=== PATIENT | female | born 1995 | race Caucasian/White ===

== ENCOUNTER 2017-02-03 10:11 | Inpatient (IN) | payer MEDICAID ==
[~2017-02-03] VITALS: Ht 165.1 cm; Wt 89.5 kg
[2017-02-03] MEDS ORDERED: BUTORPHANOL 2 MG INJ IV PRN (11:30)
[2017-02-03] MEDS ORDERED: IBUPROFEN 600 MG TAB PO PRN (11:30)
[2017-02-03] MEDS ORDERED: OXYTOCIN 30 UNITS/LR 500 ML IV SCH ×3 (11:30)
[2017-02-03] MEDS ORDERED: MISOPROSTOL 200 MCG TAB PR PRN (11:30)
[2017-02-03] MEDS ORDERED: METHYLERGONOVINE 0.2 MG INJ IM PRN (11:30)
[2017-02-03] MEDS ORDERED: CARBOPROST 250 MCG INJ IM PRN (11:30)
[2017-02-03] MEDS ORDERED: AMPICILLIN 2 GM/NS (PMX) 100 ML IV ONE (11:30)
[2017-02-03] MEDS ORDERED: OXYTOCIN 30 UNITS/LR 500 ML IV PRN (11:30)
[2017-02-03] MEDS ORDERED: LIDOCAINE 1% (MPF) 30 ML INJ INJ PRN (11:30)
--- NOTE | 2017-02-03 12:12 | RADRPT ---
PROCEDURE: US OB. CLINICAL INDICATION: Labor TECHNIQUE: Multiple sonographic images of the pelvis were obtained. Transabdominal imaging only w as performed. The images were reviewed on a PACS workstation. COMPARISON: No prior studies are available for comparison. FINDINGS: There is a single live intrauterine gestation. Cardiac activity is present with 159 beats per minut e. position is cephalic. Measurements were made in order to determine age. The results are as follows: BPD = 9.63 cm HC = 32.62 cm AC = 35.91 cm FL = 7.48 cm. Estimated gestational age of approximately 38 weeks 4 days. The estimated date of delivery is 02/13/2017. The EFW = 3686 g, 56 %ile. The placenta is fundal. There is no evidence for an abruption or placenta previa. There are no adnexal masses. IMPRESSION: 1. Single live intrauterine gestation of approximately 38 weeks 4 days, by ultrasound criteria. 2. The estimated date of delivery is 02/13/2017. 3. The estimated weight is 3686 g, 56 %ile. RPTAT: HH .Jodi Villalba MD, Date Time Electronically viewed and signed by .Jodi Villalba MD, on 02/03/2017 12:11 .G/
--- NOTE | 2017-02-03 12:13 | RADRPT ---
PROCEDURE: OB ultrasound for biophysical profile CLINICAL INDICATION: Labor TECHNIQUE: Multiple sonographic images of the pelvis were obtained. Transabdominal views of the g ravid uterus are available for review. The images were reviewed on a PACS workstation. COMPARISON: None FINDINGS: breathing movement = 2/2 tone = 2/2 motion = 2/2 LISBET = 2/2 LISBET = 10.8 cm Single live intrauterine with cardiac activity of 156 bpm. position is cephal ic. The placenta is fundal. IMPRESSION: 1. Single live intrauterine gestation. 2. Biophysical profile = 8/8. 3. LISBET = 10.8 cm. RPTAT: HH .Jodi Villalba MD, MD Date Time Electronically viewed and signed by .Jodi Villalba MD, on 02/03/2017 12:13 .G/
[2017-02-03 12:19] LABS: BASOPHILS % 0.2 % (0.0-2.0); EOSINOPHILS # 0.1 10^3/ul (0.0-0.5); EOSINOPHILS % 0.7 % (0.0-7.0); HEMATOCRIT 33.2 % (37.0-47.0); HEMOGLOBIN 10.7 g/dl (12.0-16.0); LYMPHOCYTES # 1.3 10^3/ul (0.8-2.9); LYMPHOCYTES % 13.5 % (18.0-55.0); MEAN CORPUSCULAR HEMOGLOBIN 26.2 pg (29.0-33.0); MEAN CORPUSCULAR HGB CONC 32.2 g/dl (32.0-37.0); MEAN CORPUSCULAR VOLUME 81.4 fl (72.0-104.0); MEAN PLATELET VOLUME 11.3 fl (7.4-10.4); MONOCYTE # 0.6 10^3/ul (0.3-0.9); MONOCYTES % 6.8 % (0.0-13.0); NEUTROPHIL # 7.4 10^3/ul (1.6-7.5); NEUTROPHILS % 78.4 % (30.0-74.0); PLATELET COUNT 256 10^3/UL (140-415); RED BLOOD COUNT 4.08 10^6/ul (4.20-5.40); WHITE BLOOD COUNT 9.5 10^3/ul (4.8-10.8)
[2017-02-03 12:35] LABS: INR 0.9; PROTIME 12.1 Sec (12.2-14.2); PT RATIO 0.9
[2017-02-03] MEDS: LACTATED RINGER'S 1,000 ML IV SCH ×3 (12:36→21:15)
[2017-02-03] MEDS ORDERED: AMPICILLIN 1 GM/NS (PMX) 50 ML IV SCH (15:30)
[2017-02-03] MEDS ORDERED: LACTATED RINGER'S 1,000 ML IV PRN (16:00)
[2017-02-03 21:29] VITALS: Ht 165.1 cm; Wt 89.5 kg
[2017-02-04] MEDS ORDERED: FENTAnyl 2MCG/ML-ROPIV 0.2% 100 ML ONE (02:22)
[2017-02-04] MEDS ORDERED: NALOXONE (0.4 MG/ML) INJ IV PRN (02:30)
[2017-02-04] MEDS ORDERED: EPHEDrine SULFATE 50 MG/5 ML SYG IV PRN (02:30)
[2017-02-04] MEDS ORDERED: FENTAnyl 2MCG/ML-ROPIV 0.2% 100 ML BAG EPI SCH (02:30)
[2017-02-04] MEDS ORDERED: DIPHENHYDRAMINE 50 MG INJ IV PRN (02:30)
[2017-02-04] MEDS ORDERED: ONDANSETRON 4 MG INJ IV PRN ×2 (02:30→12:30)
[2017-02-04] MEDS: LACTATED RINGER'S 1,000 ML IV SCH ×2 (03:08→08:26)
[2017-02-04] MEDS ORDERED: MINERAL OIL LIGHT 10 ML VIAL TOP ONE (08:00)
[2017-02-04 11:05] VITALS: BP 108/54; PULSE 81; RESP 18
[2017-02-04 11:15] VITALS: BP 108/54; PULSE 87; RESP 18
[2017-02-04] MEDS ORDERED: LACTATED RINGER'S 1,000 ML IV* SCH ×2 (11:16→12:08)
[2017-02-04] MEDS ORDERED: CARBOPROST 250 MCG INJ IM PRN ×2 (11:30→12:30)
[2017-02-04] MEDS ORDERED: METHYLERGONOVINE 0.2 MG INJ IM PRN ×2 (11:30→12:30)
[2017-02-04] MEDS ORDERED: OXYTOCIN 30 UNITS/LR 500 ML IV PRN ×2 (11:30→12:30)
[2017-02-04] MEDS ORDERED: MISOPROSTOL 200 MCG TAB PR PRN ×2 (11:30→12:30)
[2017-02-04] MEDS ORDERED: ONDANSETRON 4 MG TAB PO PRN (12:30)
[2017-02-04] MEDS ORDERED: BENZOCAINE 20% 56 ML SPRAY TOP PRN (12:30)
[2017-02-04] MEDS ORDERED: OXYCODONE/ASPIRIN (4.88/325) TAB PO PRN (12:30)
[2017-02-04] MEDS ORDERED: SENNA/DOCUSATE NA (8.6MG/50MG) TAB PO PRN (12:30)
[2017-02-04] MEDS ORDERED: LANOLIN 7 GM TUBE TOP PRN (12:30)
[2017-02-04] MEDS ORDERED: ZOLPIDEM 5 MG TAB PO PRN (12:30)
[2017-02-04] MEDS ORDERED: WITCH HAZEL/GLYCERIN PAD PR PRN (12:30)
[2017-02-04 16:00] VITALS: BP 115/56; PULSE 106; RESP 18
[2017-02-04] MEDS: IBUPROFEN 600 MG TAB PO SCH ×2 (17:43→23:56)
[2017-02-04 19:30] VITALS: BP 124/65; PULSE 105; RESP 19
[2017-02-04] MEDS: SENNA/DOCUSATE NA (8.6MG/50MG) TAB PO SCH (20:46)
[2017-02-05 04:00] VITALS: BP 110/71; PULSE 83; RESP 19
[2017-02-05] MEDS: IBUPROFEN 600 MG TAB PO SCH ×3 (05:40→17:18)
[2017-02-05 07:47] LABS: BASOPHILS % 0.1 % (0.0-2.0); EOSINOPHILS # 0.1 10^3/ul (0.0-0.5); EOSINOPHILS % 0.9 % (0.0-7.0); HEMATOCRIT 25.9 % (37.0-47.0); HEMOGLOBIN 8.3 g/dl (12.0-16.0); LYMPHOCYTES # 1.8 10^3/ul (0.8-2.9); LYMPHOCYTES % 13.2 % (18.0-55.0); MEAN CORPUSCULAR HEMOGLOBIN 26.3 pg (29.0-33.0); MEAN CORPUSCULAR VOLUME 82.2 fl (72.0-104.0); MEAN PLATELET VOLUME 11.6 fl (7.4-10.4); MONOCYTES % 7.5 % (0.0-13.0); NEUTROPHIL # 10.6 10^3/ul (1.6-7.5); NEUTROPHILS % 77.7 % (30.0-74.0); PLATELET COUNT 204 10^3/UL (140-415); RED BLOOD COUNT 3.15 10^6/ul (4.20-5.40); RED CELL DISTRIBUTION WIDTH 14.5 % (11.5-14.5); WHITE BLOOD COUNT 13.6 10^3/ul (4.8-10.8)
[2017-02-05 08:26] VITALS: BP 112/69; PULSE 86; RESP 18
[2017-02-05] MEDS: SENNA/DOCUSATE NA (8.6MG/50MG) TAB PO SCH ×2 (08:26→21:41)
--- NOTE | 2017-02-05 14:44 | QN ---
Documentation Comment Progress Note PPD #1 + but the baby is only latching on one side ( the left) and isn't on the other. The sales operations specialist hasn't seen her yet. No pain. Pt is doing well otherwise. T= 97.7 BP 112/69 Fundus is firm. Lochia minimal. Ext T, no edema. WBC 13.6 Hgb 8.3 Plts 204K P: Continue care. Plan D/C tomorrow. junk removal specialist called to see the pt. ZHANNA RANDALL MD Feb 05, 2017 14:43
[2017-02-05 15:50] VITALS: BP 114/56; PULSE 72; RESP 18
[2017-02-05 19:50] VITALS: BP 114/65; PULSE 88; RESP 18
[2017-02-06] MEDS: IBUPROFEN 600 MG TAB PO SCH ×3 (00:01→12:06)
[2017-02-06 03:45] VITALS: BP 109/56; PULSE 78; RESP 18
[2017-02-06 08:00] VITALS: BP 130/71; PULSE 78; RESP 18
[2017-02-06] MEDS: SENNA/DOCUSATE NA (8.6MG/50MG) TAB PO SCH (08:49)
[2017-02-06] MEDS ORDERED: DIPHTH/TET/ACEL PERTUSS (ADULT) 0.5 ML VIAL IM* ONE (09:00)
--- NOTE | 2017-02-06 13:08 | HP ---
Date/Time of Note Date/Time of Note DATE: 02/06/17 TIME: 13:07 OB - History Hx of Present Free Text/Dictation @39+wks GA with GDMA1 : 1 Para: 0 Care: Good Care Obstetrical Complications: Gestational Diabetes Medical Complications: None Past Family/Social History * Past Medical, Surgical, Family and Obstetric Histories reviewed from chart. OB Admission Exam Vital Signs Vital Signs Vital Signs Date Time Temp Pulse Resp B/P Pulse Ox O2 Delivery O2 Flow Rate FiO2 02/06/17 08:00 98.1 78 18 130/71 Room Air Physical Exam Abdomen: WNL Extremities: Normal Cervical Dilatation: 2cm Effacement: 75% Station: -1 Membranes: Intact Accelerations: Accelerations Present Decelerations: No Decelerations Varibility: Moderate Contractions on Admission: 6-10 Minutes Apart Last 72 hourBlood Glucose Bedside Glucose - 72 Hours Test 02/04/17 01:48 Bedside Glucose 107mg/dL (70-220) Last 72 hours Lab Results CBC & BMP 02/05/17 07:20 OB Assessment/Plan Reason for admission: observation Induction Method: per Pitocin Protocol JOSE ANGEL STEIN M.D. Feb 06, 2017 13:08
--- NOTE | 2017-02-06 13:10 | LDN ---
Date/Time of Note Date/Time of Note DATE: 02/06/17 TIME: 13:09 Delivery Summary Weeks of Gestation 39+ Placenta Delivered: Spontaneously Meconium: none Perineal laceration: 2 Anesthesia type: Epidural Estimated blood loss: 200 Sponge & Needle done & correct: Yes All needle counts correct: Yes Any foreign bodies felt in the: No Problems: JOSE ANGEL STEIN M.D. Feb 06, 2017 13:10
--- NOTE | 2017-02-06 13:11 | QN ---
Documentation Comment PPD#2 is stable afebrile toleartes diet No Vb +BM +voids VS stable Gen NAD Abd soft NT ND Genitalai No blood at perinium --->discharge Home JOSE ANGEL STEIN M.D. Feb 06, 2017 13:11
--- NOTE | 2017-02-06 13:13 | DS ---
Date/Time of Note Date/Time of Note DATE: 02/06/17 TIME: 13:12 Discharge Summary Admission/Discharge Info Admit Date/Time Feb 03, 2017 at 12:47 Discharge Date/Time January Patient Condition: Good Procedures Vaginal delivery Hospital Course uneventful Primary Care Provider Care Physician JOSE ANGEL Gonzalez M.D. Feb 06, 2017 13:13
[2017-02-06 16:00] VITALS: BP 117/72; PULSE 72; RESP 16
== END 2017-02-06 17:30 | disposition home or self-care (01) | DRG 775 ==
LOC: OBT 10:11 → L-D 10:12 → OBT 12:46 → L-D 12:47 → PP1 02-04 11:12
PROVIDERS: ADMIT Obstetrics & Gynecology; ATTEND Obstetrics & Gynecology
PROC: 10E0XZZ Delivery of Products of Conception, External Approach (ICD-10-PCS; principal; 2017-02-04)
PROC: 3E033VJ Introduction of Other Hormone into Peripheral Vein, Percutaneous Approach (ICD-10-PCS; 2017-02-04)
DX: O99.214 Obesity complicating childbirth (principal); E66.9 Obesity, unspecified; Z68.32 Body mass index [BMI] 32.0-32.9, adult; Z3A.39 39 weeks gestation of pregnancy; Z37.0 Single live birth
CPT/HCPCS: 62319; 76815; 76818; 82962; 85025; 85610; 85730; 86592; 86900; 86901; 90715; 99464; G0463; J0595; J2590; J3010; J7120

== ENCOUNTER 2018-02-08 18:48 | Emergency (ER) | END 2018-02-08 23:51 | disposition home or self-care (01) ==

== ENCOUNTER 2018-04-27 18:35 | Emergency (ER) | END 2018-04-27 20:38 | disposition home or self-care (01) ==

== ENCOUNTER 2018-05-26 05:52 | Emergency (ER) | END 2018-05-26 09:42 | disposition home or self-care (01) ==

== ENCOUNTER 2018-10-13 18:40 | Observation (INO) | payer MEDICAID ==
[~2018-10-13] VITALS: Ht 162.6 cm; Wt 80.4 kg
[~2018-10-13 18:40] MED LIST: CEPH-443 PO; IBUP800T48 PO; NITR-58 PO; ONDA4TAB14 PO; ONDA4TAB8 PO
[2018-10-13] MEDS ORDERED: IOHEXOL 100 ML ONE (21:02)
[2018-10-13] MEDS ORDERED: SOD CHLORIDE 0.9% 100 ML ONE (21:02)
[2018-10-13] MEDS ORDERED: DOCUSATE SODIUM 100 MG CAP PO PRN (23:30)
[2018-10-13] MEDS ORDERED: SOD CHLORIDE 0.9% 500 ML IV ONE (23:30)
[2018-10-13] MEDS ORDERED: BISACODYL (EC) 5 MG TAB PO PRN (23:30)
[2018-10-13] MEDS ORDERED: ONDANSETRON 4 MG INJ IV PRN (23:30)
[2018-10-13] MEDS ORDERED: ACETAMINOPHEN 325 MG TAB PO PRN ×2 (23:30)
[2018-10-13] MEDS ORDERED: NACL 0.9% 3 ML SYG IV SCH (23:30)
[2018-10-14] VITALS (12 sets, daily range): BP systolic 93–127; BP diastolic 51–71; PULSE 60–87; RESP 17–18; Ht 162.6 cm; Wt 80.4 kg
--- NOTE | 2018-10-14 00:36 | ERD ---
ER Documentation Chief Complaint Chief Complaint abd pain/chest pain/sob x 30 min. 18 weeks . denies vb HPI 23 year old female 18 weeks presenting with after a syncopal episode at home. She was doing laundry when she suddenly felt pain in the left side of her upper chest then lost consciousness, collapsing to the ground. Per her , the patient's sister was with her and witnessed this episode. However sister is not here to provide history. Reportedly, patient was unconscious for 10 minutes, and not breathing for the first 2 minutes. She had an episode of vomiting after she woke up. 911 was called and she was examined and told she was ok. Currently she complains of a aching, 6/10 pain in her left chest with associated SOB. Not positional and not exacerbated by deep breathing. Pain is nonradiating. She also complains of epigastric pain that is dull, nonradiating. NO alleviating or exacerbating factors. No vaginal bleeding or pelvic cramping. No recent illnesses, fevers, or chills. No nausea or vomiting. ROS All systems reviewed and are negative except as per history of present illness. Medications Home Meds Active Scripts Ibuprofen* (Motrin*) 800 Mg Tab, 800 MG PO Q6H PRN for PAIN AND OR ELEVATED TEMP, #30 TAB Prov:ANEESH ROSADO MD 05/26/18 Ondansetron Hcl* (Zofran*) 4 Mg Tablet, 4 MG PO Q8H PRN for NAUSEA AND/OR VOMITING, #20 TAB Prov:ANEESH ROSADO MD 05/26/18 Ibuprofen* (Motrin*) 800 Mg Tab, 800 MG PO Q6H PRN for PAIN AND OR ELEVATED TEMP, #30 TAB Prov:TERRELL CHOWDARY 04/27/18 Cephalexin* (Keflex*) 500 Mg Capsule, 500 MG PO TID for 7 Days, CAP Prov:TERRELL CHOWDARY F 04/27/18 Ondansetron (Ondansetron Odt) 4 Mg Tab.rapdis, 4 MG PO Q6H PRN for NAUSEA AND/OR VOMITING, #10 TAB Prov:ADELSO FROST PA-C 02/08/18 Nitrofurantoin Monohyd Macrocr* (Macrobid*) 100 Mg Capsr, 100 MG PO BID for 5 Days, CAP Prov:ADELSO FROST PA-C 02/08/18 Allergies Allergies: Coded Allergies: No Known Allergy (Unverified , 02/08/18) PMhx/Soc Medical and Surgical Hx: pt denies Surgical Hx History of Surgery: No Anesthesia Reaction: No Hx Neurological Disorder: No Hx Respiratory Disorders: No Hx Cardiac Disorders: No Hx Psychiatric Problems: No Hx Miscellaneous Medical Probl: No Hx Alcohol Use: No Hx Substance Use: No Hx Tobacco Use: No Smoking Status: Never smoker FmHx Family History: No diabetes Physical Exam Vitals Vital Signs Date Temp Pulse Resp B/P (MAP) Pulse Ox O2 O2 Flow FiO2 Time Delivery Rate 10/13/18 66 24 118/64 100 Room Air 19:42 (82) 10/13/18 98.6 69 18 118/59 99 18:48 (78) Physical Exam Const: No acute distress, well appearing, nontoxic Head: Atraumatic Eyes: Normal Conjunctiva, PERRLA, EOMI ENT: Normal External Ears, Nose and Mouth. Neck: Full range of motion. No meningismus. Resp: Clear to auscultation bilaterally Cardio: Regular rate and rhythm, no murmurs. 2+ distal pulses in all 4 extremities Abd: Gravid. Soft, non tender, non distended. Normal bowel sounds Skin: No petechiae or rashes Back: No midline or flank tenderness Ext: No cyanosis, or edema Neur: Awake and alert, oriented x 3, sealant mixer intact. Strength and sensations intact in all 4 extremities Psych: Normal Mood and Affect Result Diagram: 10/14/18 0551 10/14/18 0551 Results 24 hrs Laboratory Tests Test 10/13/18 20:02 White Blood Count 10.5 10^3/ul Red Blood Count 4.14 10^6/ul Hemoglobin 12.3 g/dl Hematocrit 36.4 % Mean Corpuscular Volume 87.9 fl Mean Corpuscular Hemoglobin 29.7 pg Mean Corpuscular Hemoglobin Concent 33.8 g/dl Red Cell Distribution Width 12.2 % Platelet Count 253 10^3/UL Mean Platelet Volume 10.1 fl Immature Granulocytes % 0.300 % Neutrophils % 73.4 % Lymphocytes % 18.7 % Monocytes % 6.4 % Eosinophils % 0.8 % Basophils % 0.4 % Nucleated Red Blood Cells % 0.0 /100WBC Immature Granulocytes # 0.030 10^3/ul Neutrophils # 7.7 10^3/ul Lymphocytes # 2.0 10^3/ul Monocytes # 0.7 10^3/ul Eosinophils # 0.1 10^3/ul Basophils # 0.0 10^3/ul Nucleated Red Blood Cells # 0.0 10^3/ul Urine Color STRAW Urine Clarity CLEAR Urine pH 7.0 Urine Specific [place] 1.005 Urine Ketones NEGATIVE mg/dL Urine Nitrite NEGATIVE mg/dL Urine Bilirubin NEGATIVE mg/dL Urine Urobilinogen NEGATIVE mg/dL Urine Leukocyte Esterase NEGATIVE [place]/ul Urine Hemoglobin NEGATIVE mg/dL Urine Glucose NEGATIVE mg/dL Urine Total Protein NEGATIVE mg/dl Sodium Level 138 mmol/L Potassium Level 4.1 mmol/L Chloride Level 104 mmol/L Carbon Dioxide Level 24 mmol/L Anion Gap 10 Blood Urea Nitrogen 9 mg/dl Creatinine 0.48 mg/dl Est Glomerular Filtrat Rate mL/min > 60 mL/min Glucose Level 83 mg/dl Calcium Level 9.3 mg/dl Total Bilirubin 0.2 mg/dl Direct Bilirubin 0.00 mg/dl Indirect Bilirubin 0.2 mg/dl Aspartate Amino Transf (AST/SGOT) 20 IU/L Alanine Aminotransferase (ALT/SGPT) 19 IU/L Alkaline Phosphatase 73 IU/L Troponin I < 0.012 ng/ml Total Protein 7.0 g/dl Albumin 3.8 g/dl Globulin 3.20 g/dl Albumin/Globulin Ratio 1.18 Lipase 59 U/L Current Medications Medications Dose Sig/Isaiah Start Time Status Last (Trade) Ordered Route PRN Stop Time Admin Dose Reason Admin IV Flush 10 ml STK-MED 10/13/18 DC (NS 10 ml) ONCE .ROUTE 21:02 10/13/18 21:03 Sodium 100 ml @ ud STK-MED 10/13/18 DC Chloride ONCE .ROUTE 21:02 10/13/18 21:03 Iohexol 100 ml @ ud STK-MED 10/13/18 DC ONCE .ROUTE 21:02 10/13/18 21:03 Procedures/MDM EMERGENT LABS AND DIAGNOSTIC STUDIES: Lab Results above were reviewed and interpreted by me. CBC: Mild anemia. No evidence of infection BMP: No evidence of clinically significant electrolyte abnormality, acidosis, renal failure, hypoglycemia Troponin within normal limits, not indicative of cardiac ischemia UA: no evidence of infection 12-lead EKG was interpreted by Sena Valencia MD: Normal Sinus Rhythm, regular rate Normal axis Normal intervals No acute ST or T wave changes suggestive of acute ischemia or STEMI. Radiology Results as interpreted by Radiology below were reviewed by SDereck vaca MD: Chest x-ray shows possible pneumonia CTA chest shows no acute abnormalities, no dissection, no PE, no evidence of pneumonia OB ultrasound shows normal IUP Initial Nursing notes reviewed. Previous Medical Records requested via the Electronic Health Record. EMERGENCY DEPARTMENT COURSE / MEDICAL DECISION MAKING: The patient presented after a syncopal episode. Differential includes but is not limited to cardiac arrhythmia or ischemia, pulmonary embolism, vasovagal syncope, situational syncope, dehydration with orthostatic hypotension, hemorrhage. I have a low suspicion for seizure, intracranial hemorrhage, stro ke, or serious head injury. Blood sugar was normal. EKG showed no significant arrhythmia or ischemia. Labs were unremarkable. CT of the chest was done to evaluate for possible dissection versus pulmonary embolism. However there was no evidence of these. No evidence of ACS on workup. However, given the patients history of prolonged loss of consciousness and chest pain prior to her syncope, occult etiology such as fatal dysrhythmia cannot be ruled out. I do not believe patient is safe for discharge and will need admission for telemetry monitoring and further workup. Accepting Care Team: Current data and ongoing care discussed. Time: Time of admission Primary Provider: Dr. Timmy Matos Diagnosis: Primary Impression: Syncope Syncope type: unspecified Qualified Codes: R55 - Syncope and collapse Additional Impressions: Weeks of gestation: 18 weeks Qualified Codes: Z3A.18 - 18 weeks gestation of Chest pain Chest pain type: unspecified Qualified Codes: R07.9 - Chest pain, unspecified Condition: WANDA Jason MD Oct 14, 2018 00:36
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
[2018-10-14] MEDS ORDERED: SOD CHLORIDE 0.9% 500 ML IV ONE (09:30)
--- NOTE | 2018-10-14 11:07 | RADRPT ---
Echocardiogram Report Patient Name: BRYN JOPatient ID: [id number] : 1995 (23y 8m)Study Date: 10/14/2018 7:40:48 AM Gender: FAccession #: [id number] Tech: [place] [facility] Location: [facility] [place] Ref.Physician: NOREEN MOON Height(Cm): BSA: Weight(Kg): Quality: Technically Difficult StudyAccount #: Procedures: Echocardiographic Report: Transthoracic echocardiogram with complete 2D, M-Mode, and doppler examination. Indications: Syncope. Measurements: 2D/M Mode Doppler Measurement Value Normal Range Measurement Value Normal Range LVIDd 2D 4.2 [ 3.8 - 5.2 ] cm AV Peak Enrique 1.5 [ 100.0 - 170.0 ] cm/se c LVIDs 2D 2.6 [ 2.2 - 3.5 ] cm AV Peak PG 8.0 [ 2.0 - 9.0 ] mmHg LVPWd 2D 0.9 [ 0.6 - 0.9 ] cm LVOT Peak Enrique 0.8 [ 70.0 - 110.0 ] cm/sec IVSd 2D 0.8 [ 0.6 - 0.9 ] cm LVOT Peak PG 3.0 [ 2.0 - 6.0 ] mmHg AoR Diam 2D 2.5 [ 2.3 - 3.1 ] cm MV E Peak Enrique 1.1 [ 60.0 - 130.0 ] cm/sec EDV 2D 79.5 [ 46.0 - 106.0 ] ml MV A Peak Enrique 0.4 [ 100.0 - 120.0 ] cm/se c ESV 2D 24.1 [ 14.0 - 42.0 ] ml MV E/A 2.9 [ 0.8 - 1.5 ] ratio EF 2D 69.7 [ 54.0 - 74.0 ] percent MV PHT 78.0 [ 20.0 - 100.0 ] msec LA Dimen 2D 2.8 [ 2.7 - 3.8 ] cm MV Decel Time 268 [ 104 - 258 ] msec MV Decel [place] 4 Lat E` Enrique 0.2 [ 10.0 - 15.0 ] cm/sec Lateral E/E` 6.9 [ 1.0 - 2.0 ] ratio Med E` Enrique 0.1 cm/sec MV E/A 2.9 [ 0.8 - 1.5 ] ratio MVA PHT 2.8 [ 2.0 - 4.0 ] cm2 TR Peak Enrique 1.9 [ 100.0 - 280.0 ] cm/se c TR Peak PG 14.0 mmHg PV Peak Enrique 1.3 [ 40.0 - 80.0 ] cm/sec PV Peak PG 7.0 mmHg Findings: Left Ventricle: Normal left ventricular systolic function. Normal left ventricular cavity size. Normal left ventricular wall thickness. Ejection fraction is visually estimated at 65 %. Tissue Doppler/Mitral Doppler indices are within normal limits. Right Ventricle: Normal right ventricular size. Normal right ventricular systolic function. Left Atrium: The left atrium is normal in size. Right Atrium: The right atrium is normal in size. Atrial Septum: Normal atrial septum. Ventricular septum: Normal/intact ventricular septum. Mitral Valve: Normal appearance of the mitral valve. No mitral valve regurgitation is seen. Aortic Valve: Normal appearance of the aortic valve. No aortic regurgitation. Tricuspid Valve: Normal appearance of the tricuspid valve. Unable to obtain RVSP due to minimal presence of tricuspid regurgitation. There is trace tricuspid regurgitation. Pulmonic Valve: Normal pulmonic valve appearance. No evidence of pulmonic regurgitation. Pericardium: Normal pericardium with no significant pericardial effusion. Aorta: Normal aortic root. IVC: The IVC is not well visualized. Pulmonary Artery: Not well visualized. Conclusions: Normal left ventricular systolic function. Normal left ventricular cavity size. Normal left ventricular wall thickness. Ejection fraction is visually estimated at 65 %. Tissue Doppler/Mitral Doppler indices are within normal limits. No significant valvular stenosis or regurgitation seen. Unable to obtain RVSP due to minimal presence of tricuspid regurgitation. The IVC is not well visualized. Electronically Signed By: Pedro Hines 2018-10-14 11:06:31 PDT
--- NOTE | 2018-10-14 12:37 | CONS ---
Assessment/Plan Assessment/Plan Hospital Course (Demo Recall) Syncope: Somewhat unclear and difficult to determine. the fact that she received chest compressions does not necessarily mean she was pulseless or truly apneic. Objectively, all tests have been unremarkable. CTA is normal. Echo is completely normal. EKG in normal with normal intervals and no sign of ischemia. Troponins are negative. Highly doubtful she has obstructive CAD and though spontaneous coronary dissection is in the differential, it is doubtful with normal EKG, trops, and lack of persistent symptoms. No arrhythmias on tele. No family h/o sudden . It is feasible that she had a vasovagal event causing the syncope and did not have apnea or loss of pulses. I think the best strategy is to watch her on tele overnight and have her set up with a 30 day monitor as outpt to r/o arrhythmias. Chest pain: As above. No further workup indicated at this time especially as she is and should not receive radiation. One thing to consider in the future after she delivers would be a cardiac CTA to r/o anomalous coronaries though again this is doubtful 18 weeks gestation -monitor on tele -pt needs outpt cardiology for 30 day monitor Consultation Date/Type/Reason Admit Date/Time Oct 13, 2018 at 23:08 Date of Consultation: Oct 14, 2018 Type of Consult Cardiology Reason for Consultation Syncope Requesting Provider: NOREEN MOON Date/Time of Note DATE: 10/14/18 TIME: 12:28 Hx of Present Illness 23 yo F with no past medical history, 18 weeks , who presented after syncope at home. An transport engineer was used for history. She notes that she was doing laundry when she started to feel a warm sensation in her chest followed by pain. She then lost consciousness. Her sister, who is not present at bedside for more information, apparently thought she was not breathing and started chest compressions. When the pt regained consciousness, she had nausea and vomited. No chest pain since. In the ER she underwent chest CTA and ruled out PE or dissection. She denies prior syncope history. She thinks she hydrates well. No recent illness. No family history of sudden cardiac . No exertional chest pain. per HPI Past Medical History pr hPI Home Meds Active Scripts Ibuprofen* (Motrin*) 800 Mg Tab, 800 MG PO Q6H PRN for PAIN AND OR ELEVATED TEMP, #30 TAB Prov:ANEESH ROSADO MD 05/26/18 Ondansetron Hcl* (Zofran*) 4 Mg Tablet, 4 MG PO Q8H PRN for NAUSEA AND/OR VOMITING, #20 TAB Prov:ANEESH ROSADO MD 05/26/18 Ibuprofen* (Motrin*) 800 Mg Tab, 800 MG PO Q6H PRN for PAIN AND OR ELEVATED TEMP, #30 TAB Prov:TERRELL CHOWDARY 04/27/18 Cephalexin* (Keflex*) 500 Mg Capsule, 500 MG PO TID for 7 Days, CAP Prov:TERRELL CHOWDARY 04/27/18 Ondansetron (Ondansetron Odt) 4 Mg Tab.rapdis, 4 MG PO Q6H PRN for NAUSEA AND/OR VOMITING, #10 TAB Prov:ADELSO FROST PA-C 02/08/18 Nitrofurantoin Monohyd Macrocr* (Macrobid*) 100 Mg Capsr, 100 MG PO BID for 5 Days, CAP Prov:ADELSO FROST PA-C 02/08/18 Medications Current Medications Ondansetron HCl (Zofran Inj) 4 mg ER BRIDGE PRN IV NAUSEA/VOMITING; Start 10/13/18 at 23:30; Stop 10/14/18 at 23:29 Acetaminophen (Tylenol Tab) 650 mg ER BRIDGE PRN PO .MILD PAIN 1-3 OR TEMP; Start 10/13/18 at 23:30; Stop 10/14/18 at 23:29 IV Flush (NS 3 ml) 3 ml PER PROTOCOL IV ; Start 10/13/18 at 23:30 Acetaminophen (Tylenol Tab) 650 mg Q6H PRN PO .PAIN 1-3 OR TEMP; Start 10/13/18 at 23:30 Docusate Sodium (Colace) 100 mg Q12H PRN PO .CONSTIPATION; Start 10/13/18 at 23:30 Bisacodyl (Dulcolax) 5 mg DAILY PRN PO .CONSTIPATION; Start 10/13/18 at 23:30 Allergies: Coded Allergies: No Known Allergy (Unverified , 02/08/18) Past Surgical History Past Surgical Hx: no surgical history Social History Alcohol Use: none Smoking Status: Never smoker Drug Use: none Exam/Review of Systems Vital Signs Vitals Vital Signs Date Temp Pulse Resp B/P (MAP) Pulse Ox O2 O2 Flow FiO2 Time Delivery Rate 10/14/18 98.6 62 18 102/51 98 11:31 (68) 10/14/18 Room Air 03:03 Intake and Output 10/13/18 10/13/18 10/14/18 1515:00 23:00 07:00 IntakeIntake Total 780 ml BalanceBalance 780 ml Exam Constitutional: alert, oriented Psych: no complaints, nl mood/affect Head: normocephalic, atraumatic Neck: supple; No jvd Respiratory: clear to auscultation; No crackles/rales Cardiovascular: regular rate and rhythm; No edema, No systolic murmur Gastrointestinal: soft, non-tender; No distended Musculoskeletal: nl extremities to inspection Neurological: nl mental status, nl speech Labs Result Diagram: 10/14/18 0551 10/14/18 0551 Results 24hrs Laboratory Tests Test 10/13/18 20:02 10/13/18 23:35 10/14/18 05:51 White Blood Count 10.5 9.8 Red Blood Count 4.14 L 3.92 L Hemoglobin 12.3 11.8 L Hematocrit 36.4 L 34.6 L Mean Corpuscular Volume 87.9 88.3 Mean Corpuscular Hemoglobin 29.7 30.1 Mean Corpuscular Hemoglobin Concent 33.8 34.1 Red Cell Distribution Width 12.2 12.2 Platelet Count 253 239 Mean Platelet Volume 10.1 10.4 Immature Granulocytes % 0.300 0.500 H Neutrophils % 73.4 74.8 Lymphocytes % 18.7 18.1 Monocytes % 6.4 5.4 Eosinophils % 0.8 0.9 Basophils % 0.4 0.3 Nucleated Red Blood Cells % 0.0 0.0 Immature Granulocytes # 0.030 0.050 H Neutrophils # 7.7 H 7.3 Lymphocytes # 2.0 1.8 Monocytes # 0.7 0.5 Eosinophils # 0.1 0.1 Basophils # 0.0 0.0 Nucleated Red Blood Cells # 0.0 0.0 Urine Color STRAW Urine Clarity CLEAR Urine pH 7.0 Urine Specific [place] 1.005 Urine Ketones NEGATIVE Urine Nitrite NEGATIVE Urine Bilirubin NEGATIVE Urine Urobilinogen NEGATIVE Urine Leukocyte Esterase NEGATIVE Urine Hemoglobin NEGATIVE Urine Glucose NEGATIVE Urine Total Protein NEGATIVE Sodium Level 138 138 Potassium Level 4.1 3.7 Chloride Level 104 105 Carbon Dioxide Level 24 22 Anion Gap 10 11 Blood Urea Nitrogen 9 8 Creatinine 0.48 0.49 Est Glomerular Filtrat Rate mL/min > 60 > 60 Glucose Level 83 97 Calcium Level 9.3 9.0 Total Bilirubin 0.2 0.2 Direct Bilirubin 0.00 0.00 Indirect Bilirubin 0.2 0.2 Aspartate Amino Transf (AST/SGOT) 20 17 Alanine Aminotransferase (ALT/SGPT) 19 13 Alkaline Phosphatase 73 60 Troponin I < 0.012 < 0.012 < 0.012 Total Protein 7.0 6.0 #L Albumin 3.8 3.3 Globulin 3.20 2.70 Albumin/Globulin Ratio 1.18 1.22 Lipase 59 Creatine Kinase 70 53 Creatine Kinase Index 0.6 0.8 Creatinine Kinase MB (Mass) 0.45 0.40 Hemoglobin A1c 5.2 Magnesium Level 1.7 Triglycerides Level 171 H Cholesterol Level 179 LDL Cholesterol, Calculated 97 HDL Cholesterol 48 Cholesterol/HDL Ratio 3.7 Thyroid Stimulating Hormone (TSH) 3.150 Medications Medications Current Medications Ondansetron HCl (Zofran Inj) 4 mg ER BRIDGE PRN IV NAUSEA/VOMITING; Start 10/13/18 at 23:30; Stop 10/14/18 at 23:29 Acetaminophen (Tylenol Tab) 650 mg ER BRIDGE PRN PO .MILD PAIN 1-3 OR TEMP; Start 10/13/18 at 23:30; Stop 10/14/18 at 23:29 IV Flush (NS 3 ml) 3 ml PER PROTOCOL IV ; Start 10/13/18 at 23:30 Acetaminophen (Tylenol Tab) 650 mg Q6H PRN PO .PAIN 1-3 OR TEMP; Start 10/13/18 at 23:30 Docusate Sodium (Colace) 100 mg Q12H PRN PO .CONSTIPATION; Start 10/13/18 at 23:30 Bisacodyl (Dulcolax) 5 mg DAILY PRN PO .CONSTIPATION; Start 10/13/18 at 23:30 CRYSTAL MCKINNON Oct 14, 2018 12:37
--- NOTE | 2018-10-14 16:02 | PN ---
Date/Time of Note Date/Time of Note DATE: 10/14/18 TIME: 15:42 Assessment/Plan VTE Prophylaxis Risk score (from Ns)>0 risk: 1 SCD applied (from Ns): Yes Pharmacological prophylaxis: NA/contraindicated Pharm contraindication: low risk/ambulating Lines/Catheters [facility] Urinary Cath still in place: No Assessment/Plan Assessment/Plan 23 yo woman admitted after very prolonged syncopal episode and, according to family, possible respiratory arrest. # syncopal episode: - Neuro: Completely normal neuro exam with no focal deficits. Stroke unlikely, will not pursue MRI. Seizure possible, but unlikely. Will monitor for 24 hours but if no seizure activity will not pursue EEG. - Cardio: No angina or heart failure symptoms. Normal echo. No events on telemetry, will monitor for [address] Hines following. - Likely vasovagal. # IUP: 18 weeks gestation on obstetric ultrasound. We will put an order for L&D to check heart monitoring. # DVT GI prophylaxis: SCDs, no GI prophylaxis indicated Result Diagram: 10/14/18 0551 10/14/18 0551 Subjective 24 Hr Interval Summary Free Text/Dictation The patient is currently feeling well, no complaints, no overnight events. No events on telemetry. She's been in normal sinus. Exam/Review of Systems Exam Vitals Vital Signs Date Temp Pulse Resp B/P (MAP) Pulse Ox O2 O2 Flow FiO2 Time Delivery Rate 10/14/18 72 120/63 12:27 (82) 10/14/18 100 12:19 10/14/18 98.6 18 11:31 10/14/18 Room Air 03:03 Intake and Output 10/13/18 10/13/18 10/14/18 1515:00 23:00 07:00 IntakeIntake Total 780 ml BalanceBalance 780 ml Exam General: Obese woman lying in bed, no acute distress. HEENT: Atraumatic, normocephalic. The pupils are equal, round and reactive. Extraocular motor are intact Neck: Supple with full range of motion. No rigidity or meningismus Chest: Nontender Lungs: Clear to auscultation bilaterally no crackles rales or wheezing Heart: Normal S1-S2, Regular rhythm and rate. No murmur, S3, or S4 Abdomen: Gravid, soft , nontender, nondistended. Extremities: Normal to inspection, no edema no cyanosis NEURO CN: PERRL, EOMI. Facial sensation intact and equal bilaterally V1-V3. No facial droop, symmetric facial rise. No hoarseness or difficulty swallowing. Tongue midline. Equal shoulder shrug and head turn. Strength: 5/5 strength bilateral upper and lower extremities. No sensory loss. Gait: Able to walk with strong steady gait. Negative Romberg. Results Results 24hrs Laboratory Tests Test 10/13/18 20:02 10/13/18 23:35 10/14/18 05:51 White Blood Count 10.5 9.8 Red Blood Count 4.14 L 3.92 L Hemoglobin 12.3 11.8 L Hematocrit 36.4 L 34.6 L Mean Corpuscular Volume 87.9 88.3 Mean Corpuscular Hemoglobin 29.7 30.1 Mean Corpuscular Hemoglobin Concent 33.8 34.1 Red Cell Distribution Width 12.2 12.2 Platelet Count 253 239 Mean Platelet Volume 10.1 10.4 Immature Granulocytes % 0.300 0.500 H Neutrophils % 73.4 74.8 Lymphocytes % 18.7 18.1 Monocytes % 6.4 5.4 Eosinophils % 0.8 0.9 Basophils % 0.4 0.3 Nucleated Red Blood Cells % 0.0 0.0 Immature Granulocytes # 0.030 0.050 H Neutrophils # 7.7 H 7.3 Lymphocytes # 2.0 1.8 Monocytes # 0.7 0.5 Eosinophils # 0.1 0.1 Basophils # 0.0 0.0 Nucleated Red Blood Cells # 0.0 0.0 Urine Color STRAW Urine Clarity CLEAR Urine pH 7.0 Urine Specific [place] 1.005 Urine Ketones NEGATIVE Urine Nitrite NEGATIVE Urine Bilirubin NEGATIVE Urine Urobilinogen NEGATIVE Urine Leukocyte Esterase NEGATIVE Urine Hemoglobin NEGATIVE Urine Glucose NEGATIVE Urine Total Protein NEGATIVE Sodium Level 138 138 Potassium Level 4.1 3.7 Chloride Level 104 105 Carbon Dioxide Level 24 22 Anion Gap 10 11 Blood Urea Nitrogen 9 8 Creatinine 0.48 0.49 Est Glomerular Filtrat Rate mL/min > 60 > 60 Glucose Level 83 97 Calcium Level 9.3 9.0 Total Bilirubin 0.2 0.2 Direct Bilirubin 0.00 0.00 Indirect Bilirubin 0.2 0.2 Aspartate Amino Transf (AST/SGOT) 20 17 Alanine Aminotransferase (ALT/SGPT) 19 13 Alkaline Phosphatase 73 60 Troponin I < 0.012 < 0.012 < 0.012 Total Protein 7.0 6.0 #L Albumin 3.8 3.3 Globulin 3.20 2.70 Albumin/Globulin Ratio 1.18 1.22 Lipase 59 Creatine Kinase 70 53 Creatine Kinase Index 0.6 0.8 Creatinine Kinase MB (Mass) 0.45 0.40 Hemoglobin A1c 5.2 Magnesium Level 1.7 Triglycerides Level 171 H Cholesterol Level 179 LDL Cholesterol, Calculated 97 HDL Cholesterol 48 Cholesterol/HDL Ratio 3.7 Thyroid Stimulating Hormone (TSH) 3.150 Medications Medication Current Medications Ondansetron HCl (Zofran Inj) 4 mg ER BRIDGE PRN IV NAUSEA/VOMITING; Start 10/13/18 at 23:30; Stop 10/14/18 at 23:29 Acetaminophen (Tylenol Tab) 650 mg ER BRIDGE PRN PO .MILD PAIN 1-3 OR TEMP; Start 10/13/18 at 23:30; Stop 10/14/18 at 23:29 IV Flush (NS 3 ml) 3 ml PER PROTOCOL IV ; Start 10/13/18 at 23:30 Acetaminophen (Tylenol Tab) 650 mg Q6H PRN PO .PAIN 1-3 OR TEMP; Start 10/13/18 at 23:30 Docusate Sodium (Colace) 100 mg Q12H PRN PO .CONSTIPATION; Start 10/13/18 at 23:30 Bisacodyl (Dulcolax) 5 mg DAILY PRN PO .CONSTIPATION; Start 10/13/18 at 23:30 MYKEL MONTEMAYOR MD Oct 14, 2018 15:53
[2018-10-15] VITALS (9 sets, daily range): BP systolic 103–116; BP diastolic 54–61; PULSE 53–105; RESP 16–18
--- NOTE | 2018-10-15 09:16 | CONS ---
Assessment/Plan Assessment/Plan Hospital Course (Demo Recall) Syncope: Somewhat unclear and difficult to determine. The fact that she received chest compressions does not necessarily mean she was pulseless or truly apneic. Objectively, all tests have been unremarkable. CTA is normal. Echo is completely normal. EKG in normal with normal intervals and no sign of ischemia. Troponins are negative. Highly doubtful she has obstructive CAD and though spontaneous coronary dissection is in the differential, it is doubtful with normal EKG, trops, and lack of persistent symptoms. No arrhythmias on tele. No family h/o sudden . It is feasible that she had a vasovagal event causing the syncope and did not have apnea or loss of pulses. She has also been having orthostatic related sinus tachycardia which makes dehydration and orthostatic/vagal syncope more likely. Chest pain: As above. No further workup indicated at this time especially as she is and should not receive radiation. One thing to consider in the future after she delivers would be a cardiac CTA to r/o anomalous coronaries though again this is doubtful 18 weeks gestation -ok for d/c from my perspective -pt needs outpt cardiology f/u for 30 day monitor Consultation Date/Type/Reason Admit Date/Time Oct 13, 2018 at 23:08 Initial Consult Date 10/14/18 Type of Consult Cardiology Requesting Provider: NOREEN MOON Date/Time of Note DATE: 10/15/18 TIME: 09:13 24 HR Interval Summary Free Text/Dictation No events. No arrhythmias. Has been having episodes of sinus tachycardia when standing up and with activity but denies dizziness. Exam/Review of Systems Vital Signs Vitals Vital Signs Date Temp Pulse Resp B/P (MAP) Pulse Ox O2 O2 Flow FiO2 Time Delivery Rate 10/15/18 89 09:04 10/15/18 103/58 96 Room Air 08:56 (73) 10/15/18 98.4 18 08:53 Intake and Output 10/14/18 10/14/18 10/15/18 1515:00 23:00 07:00 IntakeIntake Total 600 ml 750 ml BalanceBalance 600 ml 750 ml Exam Constitutional: alert, oriented Psych: no complaints, nl mood/affect Head: normocephalic, atraumatic Respiratory: clear to auscultation Cardiovascular: regular rate and rhythm; No edema, No systolic murmur Gastrointestinal: soft, non-tender; No distended Neurological: nl mental status, nl speech Labs Result Diagram: 10/14/18 0551 10/14/1851 Medications Medications Current Medications IV Flush (NS 3 ml) 3 ml PER PROTOCOL IV ; Start 10/13/18 at 23:30 Acetaminophen (Tylenol Tab) 650 mg Q6H PRN PO .PAIN 1-3 OR TEMP; Start 10/13/18 at 23:30 Docusate Sodium (Colace) 100 mg Q12H PRN PO .CONSTIPATION; Start 10/13/18 at 23:30 Bisacodyl (Dulcolax) 5 mg DAILY PRN PO .CONSTIPATION; Start 10/13/18 at 23:30 CRYSTAL MCKINNON Oct 15, 2018 09:16
--- NOTE | 2018-10-15 10:10 | PDOCDIS ---
Discharge Instructions CONDITION [id number] Patient Condition: [id number] Stable ACTIVITY: [id number] Activity Restrictions: [id number] Slowly Increase Activity Rest between Activity Avoid heavy lifting FOLLOW UP/APPOINTMENTS Follow-up Plan Please take your medications as prescribed, if any. Please see your primary care doctor and SAW BOSS doctor in the clinic in the next few days for follow-up. GEOVANNY KENT Oct 15, 2018 10:10
--- NOTE | 2018-10-15 10:12 | DS ---
Date/Time of Note Date/Time of Note DATE: 10/15/18 TIME: 10:11 Discharge Summary Admission/Discharge Info Admit Date/Time Oct 13, 2018 at 23:08 Discharge Date/Time Discharge Diagnosis # syncopal episode: - Neuro: Completely normal neuro exam with no focal deficits. Stroke unlikely, will not pursue MRI. Seizure possible, but unlikely. Will monitor for 24 hours but if no seizure activity will not pursue EEG. - Cardio: No angina or heart failure symptoms. Normal echo. No events on telemetry, will monitor for [address] Hines following. - Likely vasovagal. # IUP: 18 weeks gestation on obstetric ultrasound. We will put an order for L&D to check heart monitoring. Patient Condition: Stable Procedures A. 2D echo: Conclusions: Normal left ventricular systolic function. Normal left ventricular cavity size. Normal left ventricular wall thickness. Ejection fraction is visually estimated at 65 %. Tissue Doppler/Mitral Doppler indices are within normal limits. No significant valvular stenosis or regurgitation seen. Unable to obtain RVSP due to minimal presence of tricuspid regurgitation. The IVC is not well visualized. B. OB ultrasound: (10/13/18): IMPRESSION: Single live intrauterine gestation of approximately 18 weeks 2 days. The estimated date of delivery is 03/14/2019 . No evidence of placental abruption or previa. Cervix is closed. Hx of Present Illness 23 year old female 18 weeks presenting with after a syncopal episode at home. She was doing the dishes when she felt a warm sensation along with a left-sided chest pain and then collapsed and lost consciousness. Per her , the patient's sister was with her and witnessed this episode. Her sister provided CPR apparently as well. However sister is not here to provide history. Reportedly, patient was unconscious for 10 minutes, and not breathing for the first 2 minutes. She had an episode of vomiting after she woke up. 911 was called and she was examined and told she was ok. When she arrived to the emergency department she was complaining of aching 6 out of 10 pain in her left chest with shortness of breath. The pain was nonradiating.Patient had an emergent CTA of the chest performed which was negative for any pulmonary embolism. Hospital Course Patient was admitted to telemetry floor, and seen by cardiology team. She underwent echocardiogram and OB ultrasound. She had no further syncopal events while she was here in the hospital. Her heart rate was monitored on telemetry floor as well. Patient was able to ambulate, tolerated p.o. diet. She did have some dizziness upon standing up from bed and was told to cautiously elevate when getting out of the bed to prevent any syncopal events from happening. Per cardiology team her syncope was somewhat unclear and difficult to determine. Objectively, all tests have been unremarkable. CTA was normal. Echo was completely normal. EKG was normal with normal intervals and no sign of ischemia. Troponins were negative. Highly doubtful she has obstructive CAD and though spontaneous coronary dissection is in the differential, it is doubtful with normal EKG, trops, and lack of persistent symptoms. No arrhythmias on tele. No family h/o sudden . Cardiology team felt it was possible patient had a vasovagal event causing the syncope and did not have apnea or loss of pulses. She had been having orthostatic related sinus tachycardia which makes dehydration and orthostatic/vagal syncope more likely. Because patient's vital signs are stable, she is ambulating, tolerating p.o. diet, after getting clearance from consultant electronics teams she will be discharged home today in improved condition. Per cardiology team one thing to consider in the future after she delivers would be a cardiac CTA to r/o anomalous coronaries though again this is doubtful. See below for full list of discharge medications. l Home Meds Active Scripts Ondansetron Hcl* (Zofran*) 4 Mg Tablet, 4 MG PO Q8H PRN for NAUSEA AND/OR VOMITING, #20 TAB Prov:ANEESH ROSADO MD 05/26/18 Discontinued Scripts Ibuprofen* (Motrin*) 800 Mg Tab, 800 MG PO Q6H PRN for PAIN AND OR ELEVATED TEMP, #30 TAB Prov:ANEESH ROSADO MD 05/26/18 Ibuprofen* (Motrin*) 800 Mg Tab, 800 MG PO Q6H PRN for PAIN AND OR ELEVATED TEMP, #30 TAB Prov:TERRELL CHOWDARY 04/27/18 Cephalexin* (Keflex*) 500 Mg Capsule, 500 MG PO TID for 7 Days, CAP Prov:TERRELL CHOWDARY 04/27/18 Ondansetron (Ondansetron Odt) 4 Mg Tab.rapdis, 4 MG PO Q6H PRN for NAUSEA AND/OR VOMITING, #10 TAB Prov:ADELSO FROST PA-C 02/08/18 Nitrofurantoin Monohyd Macrocr* (Macrobid*) 100 Mg Capsr, 100 MG PO BID for 5 Days, CAP Prov:ADELSO FROST PA-C 02/08/18 Follow-up Plan Please take your medications as prescribed, if any. Please see your primary care doctor and [employer] [facility] doctor in the clinic in the next few days for follow-up. Primary Care Provider Care Physician No Primary Time spent on discharge: > 30 minutes GEOVANNY KENT Oct 15, 2018 10:12
== END 2018-10-15 12:15 | disposition home or self-care (01) ==
LOC: FTE 18:40 → TEL 23:08 → EDBEDREQ 23:11
PROVIDERS: ADMIT Family Medicine; ATTEND Hospitalist
DX: O26.892 Other specified pregnancy related conditions, second trimester (principal); Z3A.18 18 weeks gestation of pregnancy; R55 Syncope and collapse; R06.02 Shortness of breath; R07.9 Chest pain, unspecified
CPT/HCPCS: 36415; 71045; 71275; 76805; 80053; 80061; 81003; 82550; 82553; 83036; 83690; 83735; 84443; 84484; 85025; 93005; 93306; 97161; J7040; Q9967; Z7500; Z7502; Z7610; G0378

== ENCOUNTER 2019-03-03 14:14 | Outpatient (CLI) | payer MEDICAID ==
[~2019-03-03] VITALS: Ht 157.5 cm; Wt 91.0 kg
[~2019-03-03 14:14] MED LIST changes: -CEPH-443 PO; -IBUP800T48 PO; -NITR-58 PO; -ONDA4TAB14 PO; +PNV11TAB PO
[2019-03-03 14:28] VITALS: Ht 157.5 cm; Wt 91.0 kg
[2019-03-03 14:30] VITALS: BP 125/58; PULSE 84; RESP 20
== END 2019-03-03 16:40 | disposition home or self-care (01) ==
LOC: OBT 14:14 → L-D 14:15 → OBT 16:40
PROVIDERS: ATTEND Obstetrics & Gynecology
DX: O62.9 Abnormality of forces of labor, unspecified (principal); Z3A.38 38 weeks gestation of pregnancy
CPT/HCPCS: 76815; Z7500; G0463

== ENCOUNTER 2019-03-04 12:05 | Outpatient (CLI) | payer MEDICAID ==
[~2019-03-04] VITALS: Ht 157.5 cm; Wt 91.7 kg
[2019-03-04 12:22] VITALS: BP 115/68; PULSE 75; RESP 19; Ht 157.5 cm; Wt 91.7 kg
[2019-03-04] MEDS ORDERED: ACETAMINOPHEN 500 MG TAB PO STA (14:30)
== END 2019-03-04 15:10 | disposition home or self-care (01) ==
LOC: L-D 12:05 → OBT 12:05 → L-D 12:20 → OBT 15:10
PROVIDERS: ATTEND Obstetrics & Gynecology
DX: O62.9 Abnormality of forces of labor, unspecified (principal); Z3A.38 38 weeks gestation of pregnancy
CPT/HCPCS: 76818; Z7500; Z7610; G0463

== ENCOUNTER 2019-03-09 07:12 | Inpatient (IN) | payer MEDICAID ==
[~2019-03-09] VITALS: Ht 157.5 cm; Wt 92.8 kg
[~2019-03-09 07:12] MED LIST changes: -ONDA4TAB8 PO
[2019-03-09 07:48] VITALS: Ht 157.5 cm; Wt 92.8 kg
[2019-03-09 07:49] VITALS: BP 122/62; PULSE 71; RESP 18
[2019-03-09] MEDS ORDERED: OXYTOCIN 30 UNITS/LR 500 ML IV SCH ×3 (10:00)
[2019-03-09] MEDS ORDERED: BUTORPHANOL 2 MG INJ IV PRN ×2 (10:00)
[2019-03-09] MEDS ORDERED: MISOPROSTOL 200 MCG TAB PR PRN (10:00)
[2019-03-09] MEDS ORDERED: OXYTOCIN 30 UNITS/LR 500 ML IV PRN (10:00)
[2019-03-09] MEDS ORDERED: METHYLERGONOVINE 0.2 MG INJ IM PRN (10:00)
[2019-03-09] MEDS ORDERED: CARBOPROST 250 MCG INJ IM PRN (10:00)
[2019-03-09] MEDS ORDERED: LIDOCAINE 1% (MPF) 30 ML INJ INJ PRN (10:00)
[2019-03-09] MEDS: LACTATED RINGER'S 1,000 ML IV SCH ×3 (11:14→21:06)
[2019-03-09] MEDS ORDERED: LACTATED RINGER'S 1,000 ML IV PRN (20:20)
[2019-03-09] MEDS ORDERED: FENTAnyl 2MCG/ML-ROPIV 0.2% 100 ML ONE (20:54)
[2019-03-09] MEDS ORDERED: NALOXONE (0.4 MG/ML) INJ IV PRN (21:30)
[2019-03-09] MEDS ORDERED: FENTAnyl 2MCG/ML-ROPIV 0.2% 100 ML BAG EPI SCH (21:30)
[2019-03-10] MEDS ORDERED: BENZOCAINE 20% 56 ML SPRAY TOP PRN (04:00)
[2019-03-10] MEDS ORDERED: CARBOPROST 250 MCG INJ IM PRN (04:00)
[2019-03-10] MEDS ORDERED: LANOLIN HPA 1 PKT TOP PRN (04:00)
[2019-03-10] MEDS ORDERED: OXYTOCIN 30 UNITS/LR 500 ML IV PRN (04:00)
[2019-03-10] MEDS ORDERED: MISOPROSTOL 200 MCG TAB PR PRN (04:00)
[2019-03-10] MEDS ORDERED: METHYLERGONOVINE 0.2 MG INJ IM PRN (04:00)
[2019-03-10] MEDS: LACTATED RINGER'S 1,000 ML IV* SCH ×3 (04:17→20:00)
[2019-03-10 05:20] VITALS: BP 140/73; PULSE 57; RESP 20
[2019-03-10 06:20] VITALS: BP 134/72; PULSE 57; RESP 20
[2019-03-10] MEDS: IBUPROFEN 600 MG TAB PO SCH ×3 (06:39→17:15)
[2019-03-10] MEDS: HYDROCODONE/APAP (5/325) TAB PO PRN ×3 (06:40→21:21)
[2019-03-10 08:00] VITALS: BP 124/74; PULSE 59; RESP 18
[2019-03-10] MEDS: OXYTOCIN 30 UNITS/LR 500 ML IV SCH ×2 (08:15→16:35)
[2019-03-10 12:00] VITALS: BP 105/59; PULSE 67; RESP 18
[2019-03-10 16:00] VITALS: BP 109/64; PULSE 63; RESP 16
[2019-03-10 20:15] VITALS: BP 105/51; PULSE 67; RESP 20
[2019-03-11] VITALS: BP 110/62; PULSE 63; RESP 20
[2019-03-11] MEDS: HYDROCODONE/APAP (5/325) TAB PO PRN (01:37)
[2019-03-11] MEDS: IBUPROFEN 600 MG TAB PO SCH ×5 (01:37→23:50)
[2019-03-11] MEDS: LACTATED RINGER'S 1,000 ML IV* SCH (03:52)
[2019-03-11 04:15] VITALS: BP 110/62; PULSE 63; RESP 20
[2019-03-11 08:00] VITALS: BP 105/53; PULSE 67; RESP 18
[2019-03-11] MEDS: ASCORBIC ACID 500 MG TAB PO SCH (15:55)
[2019-03-11] MEDS: FERROUS SULFATE (EC) 325 MG TAB PO SCH (15:55)
[2019-03-11 16:00] VITALS: BP 117/72; PULSE 63; RESP 18
[2019-03-11 19:20] VITALS: BP 109/51; PULSE 78; RESP 18
[2019-03-12 03:35] VITALS: BP 104/55; PULSE 63; RESP 18
[2019-03-12] MEDS: IBUPROFEN 600 MG TAB PO SCH ×2 (05:05→12:34)
[2019-03-12 08:35] VITALS: BP 127/60; PULSE 59; RESP 18
[2019-03-12] MEDS ORDERED: DIPHTH/TET/ACEL PERTUSS (ADULT) 0.5 ML VIAL IM* ONE (09:00)
[2019-03-12] MEDS: FERROUS SULFATE (EC) 325 MG TAB PO SCH (09:45)
[2019-03-12] MEDS: ASCORBIC ACID 500 MG TAB PO SCH (09:45)
[2019-03-12] MEDS: HYDROCODONE/APAP (5/325) TAB PO PRN (10:52)
== END 2019-03-12 14:00 | disposition home or self-care (01) | DRG 806 ==
LOC: OBT 07:12 → L-D 07:12 → OBT 09:54 → L-D 10:51 → PP1 03-10 05:18
PROVIDERS: ADMIT Obstetrics & Gynecology; ATTEND Obstetrics & Gynecology
PROC: 10E0XZZ Delivery of Products of Conception, External Approach (ICD-10-PCS; principal; 2019-03-10)
PROC: 0KQM0ZZ Repair Perineum Muscle, Open Approach (ICD-10-PCS; 2019-03-10)
DX: O99.214 Obesity complicating childbirth (principal); D62 Acute posthemorrhagic anemia; Z37.0 Single live birth; E66.9 Obesity, unspecified; O70.1 Second degree perineal laceration during delivery; Z3A.39 39 weeks gestation of pregnancy; O90.81 Anemia of the puerperium
CPT/HCPCS: 62322; 76818; 84112; 85025; 85610; 85730; 86592; 86850; 86900; 86901; 87340; G0463; J2590; J3010; J7120